=== PATIENT | male | born 1975 | race Caucasian/White ===

== ENCOUNTER 2020-05-23 09:13 | Emergency (ER) | payer OTHER ==
[~2020-05-23] VITALS: Ht 172.7 cm; Wt 74.8 kg
[2020-05-23] MEDS ORDERED: IBUPROFEN 800800 MG PO (10:38)
[2020-05-23] MEDS ORDERED: HYDROCODON-ACE1 EAC7 PO (10:38)
[2020-05-23] MEDS ORDERED: ANUSOL-HC30 GM TOP (10:38)
[2020-05-23 10:58] VITALS: BP 151/87
== END 2020-05-23 10:59 | disposition home or self-care (01) ==
LOC: M.ERS 09:13
DX: K64.9 Unspecified hemorrhoids (principal)